=== PATIENT | male | born 1960 | race Asian ===

== ENCOUNTER → 2020-04-29 | Outpatient (CLI) | payer MEDICAID ==
[~2020-04-29] MED LIST: ASPI-1497 PO; ATOR20TA PO; CLOP75TA4 PO; LISI-186 PO; METF-416 PO; METO-396 PO; OMEP20TA2 PO
== END | disposition home or self-care (01) ==
LOC: LAB 09:17
PROVIDERS: ATTEND Specialist
DX: R05 Cough (principal); Z20.828 Contact with and (suspected) exposure to other viral communicable diseases
CPT/HCPCS: C9803; U0003